=== PATIENT | female | born 1960 | race Caucasian/White ===

== ENCOUNTER 2019-07-31 09:44 | Outpatient (CLI) | payer OTHER ==
--- NOTE | 2019-07-31 12:04 | ULT ---
PELVIC ULTRSOUND: Transabdominal and endovaginal ultrasound of the pelvis is performed. INDICATION: Overactive bladder. FINDINGS: Uterus has a normal size and appearance There is a tiny hyperechoic focus in the uterine myometrium in the 3 mm range probably representing a small calcification. Endometrial stripe is normal measuring 3-4 mm. The right ovary is identified and appears unremarkable. Color Doppler and spectral analysis demonstr ates blood flow to the right ovary. The left ovary is not identified. Prevoid bladder images were obtained. Bladder shows mild distenti on with mild bladder wall thickening which is probably due to under distention. The bladder volume i s recorded at 38 cc. A postvoid bladder volume is recorded at less than 1 cc. IMPRESSION: Unremarkable pelvic ultrasound. The left ovary is not identified. POS: AH
== END 2019-07-31 09:45 | disposition home or self-care (01) ==
LOC: BICULT 09:44
PROVIDERS: ATTEND Urology
DX: N32.81 Overactive bladder (principal)
CPT/HCPCS: 76856

== ENCOUNTER 2023-11-29 12:40 | Outpatient (CLI) | payer MEDICARE ==
[2023-11-29 14:15] LABS: #Basophils 0.06 10x3/uL (0.0-0.2); %Basophils 1.1 % (0.0-1.0); %Eosinophils 3.9 % (0.0-10.0); %Lymphocytes 30.2 % (21.0-51.0); %Monocytes 9.6 % (0.0-10.0); Hematocrit 36.2 % (36.0-47.0); Hemoglobin 11.4 g/dL (12.0-16.0); Mean Corpuscular HGB CONC 31.5 g/dL (32.0-36.0); Mean Corpuscular Hemoglobin 29.3 pg (27.0-31.0); Mean Corpuscular Volume 93.1 fL (78.0-98.0); Mean Platelet Volume 8.8 fL (7.4-10.4); Platelet Count 215 10x3/uL (130-400); RBC Distribution Width 13.8 % (11.5-14.5); Red Blood Cell (RBC) Count 3.89 mill/uL (4.20-5.40)
[2023-11-29 14:30] LABS: PTT 30.4 sec (22.9-36.1); Prothrombin Time 12.7 sec (12.0-14.7)
[2023-11-29 14:38] LABS: Bilirubin Negative (Negative); Blood, Urine Negative (Negative); Clarity Clear (Clear); Glucose, Urine (Dipstick) Normal (Negative); Ketone, Urine Negative (Negative); Leukocyte Negative Leu/uL (Negative); Nitrite Negative (Negative); Protein, Urine (Dipstick) Negative (Neg-Trace); RBC/HPF 0-3 HPF (0-3); Specific Gravity, Urine 1.006 (1.002-1.036); Squamous Epithelial 0-3 HPF (0-3); Urobilinogen Normal mg/dL (Less than 2); WBC/HPF 0-3 HPF (0-3); pH, Urine 6.5 (5.0-9.0)
[2023-11-29 14:41] LABS: Bacteria/HPF 1+ HPF (None Seen)
[2023-11-29 14:53] LABS: Anion Gap 11 mmol/L (10-20); BUN (Urea Nitrogen) 17 mg/dL (9.8-20.1); Calc. Creatinine Clearance 0 mL/min (70-130); Carbon Dioxide 27 mmol/L (23-31); Chloride 104 mmol/L (98-107); Estimated GFR 67; Glucose 103 mg/dL (80-115); Potassium 4.1 mmol/L (3.5-5.1); Sodium 138 mmol/L (136-145)
== END 2023-11-29 12:41 | disposition home or self-care (01) ==
LOC: LABBT 12:40
PROVIDERS: ATTEND Urology
DX: Z01.818 Encounter for other preprocedural examination (principal); N39.46 Mixed incontinence
CPT/HCPCS: 71046; 80048; 81001; 85025; 85610; 85730; 87086; 93005; 93010

== ENCOUNTER 2023-12-07 05:44 | Day surgery (SDC) | payer MEDICARE ==
[2023-11-29 13:18] VITALS: BMI 25.7
[2023-12-07] MEDS ORDERED: Bupivacaine 0.25% HCL 30 ML VIAL ONE (07:15)
[2023-12-07] MEDS ORDERED: Midazolam HCl 2 mg/2 ml Vial ONE (07:21)
[2023-12-07] MEDS ORDERED: PROPOFOL 20 ML ONE ×4 (07:52→08:31)
[2023-12-07] MEDS ORDERED: Lidocaine 1% PF 5 ML VIAL ONE (07:52)
[2023-12-07] MEDS ORDERED: CEFAZOLIN 1 GM VIAL ONE (07:52)
[2023-12-07] MEDS ORDERED: fentaNYL PF 100 MCG/2 ML SYRINGE ONE (08:01)
== END 2023-12-07 10:25 | disposition home or self-care (01) ==
LOC: SDC 05:44
PROVIDERS: ATTEND Urology
PROC: 01HY3MZ Insertion of Neurostimulator Lead into Peripheral Nerve, Percutaneous Approach (ICD-10-PCS; principal; 2023-12-07)
DX: N32.81 Overactive bladder (principal); I10 Essential (primary) hypertension; E78.5 Hyperlipidemia, unspecified; F41.9 Anxiety disorder, unspecified; F32.A Depression, unspecified; L40.50 Arthropathic psoriasis, unspecified; Z85.828 Personal history of other malignant neoplasm of skin; Z90.49 Acquired absence of other specified parts of digestive tract; Z88.5 Allergy status to narcotic agent; Z88.2 Allergy status to sulfonamides; Z91.013 Allergy to seafood; Z88.8 Allergy status to other drugs, medicaments and biological substances; Z98.890 Other specified postprocedural states
CPT/HCPCS: 64561; C1897; J0665; J0690; J2250; J2704

== ENCOUNTER 2024-01-17 12:40 | Outpatient (CLI) | payer MEDICARE ==
[2024-01-17 13:51] LABS: #Basophils 0.05 10x3/uL (0.0-0.2); %Eosinophils 4.4 % (0.0-10.0); %Lymphocytes 28.9 % (21.0-51.0); %Monocytes 7.3 % (0.0-10.0); %Neutrophils 58.2 % (42.0-75.0); Hematocrit 37.4 % (36.0-47.0); Hemoglobin 11.7 g/dL (12.0-16.0); Mean Corpuscular HGB CONC 31.3 g/dL (32.0-36.0); Mean Corpuscular Hemoglobin 28.7 pg (27.0-31.0); Mean Corpuscular Volume 91.7 fL (78.0-98.0); Mean Platelet Volume 8.6 fL (7.4-10.4); Platelet Count 228 10x3/uL (130-400); RBC Distribution Width 13.2 % (11.5-14.5); Red Blood Cell (RBC) Count 4.08 mill/uL (4.20-5.40)
[2024-01-17 14:04] LABS: Bilirubin Negative (Negative); Blood, Urine Trace (Negative); Clarity Turbid (Clear); Glucose, Urine (Dipstick) Normal (Negative); Ketone, Urine Negative (Negative); Leukocyte 500 Leu/uL (Negative); Nitrite Negative (Negative); Protein, Urine (Dipstick) 20 mg/dL (Neg-Trace); RBC/HPF 21-50 HPF (0-3); Specific Gravity, Urine 1.006 (1.002-1.036); Squamous Epithelial 0-3 HPF (0-3); Urobilinogen Normal mg/dL (Less than 2); WBC/HPF Greater than 50 HPF (0-3); pH, Urine 6.5 (5.0-9.0)
[2024-01-17 14:05] LABS: Bacteria/HPF 1+ HPF (None Seen)
[2024-01-17 14:06] LABS: Prothrombin Time 12.8 sec (12.0-14.7)
[2024-01-17 14:08] LABS: Anion Gap 13 mmol/L (10-20); BUN (Urea Nitrogen) 13 mg/dL (9.8-20.1); Calc. Creatinine Clearance 0 mL/min (70-130); Calcium 9.3 mg/dL (7.8-10.44); Carbon Dioxide 27 mmol/L (23-31); Chloride 105 mmol/L (98-107); Estimated GFR 81; Glucose 94 mg/dL (80-115); Sodium 141 mmol/L (136-145)
== END 2024-01-17 12:41 | disposition home or self-care (01) ==
LOC: LABBT 12:40
PROVIDERS: ATTEND Urology
DX: Z01.818 Encounter for other preprocedural examination (principal); N39.46 Mixed incontinence; K59.09 Other constipation; N39.0 Urinary tract infection, site not specified; N32.81 Overactive bladder
CPT/HCPCS: 80048; 81001; 85025; 85610; 85730; 87077; 87086; 93005; 93010

== ENCOUNTER 2024-01-25 06:02 | Day surgery (SDC) | payer MEDICARE ==
[2024-01-17 13:06] VITALS: BMI 26.5
[2024-01-25] MEDS ORDERED: Gentamicin 80 MG/2 ML VIAL ONE (07:08)
[2024-01-25] MEDS ORDERED: Bupivacaine 0.25% HCL 30 ML VIAL ONE (07:08)
[2024-01-25] MEDS ORDERED: Lidocaine 4% Topical Sol 50 ML BOT ONE (07:18)
[2024-01-25] MEDS ORDERED: PROPOFOL 20 ML ONE (07:21)
[2024-01-25] MEDS ORDERED: Scopolamine 1 mg/72 hour Patch ONE (07:27)
[2024-01-25] MEDS ORDERED: CEFAZOLIN 2 GM VIAL ONE (07:34)
[2024-01-25] MEDS ORDERED: fentaNYL 50 mcg/mL 1 mL Vial ONE ×2 (07:48→08:53)
[2024-01-25] MEDS ORDERED: Ondansetron PF 4 MG/2 ML Vial ONE ×2 (08:16→09:56)
[2024-01-25] MEDS ORDERED: Dexamethasone 4 mg/ml Vial ONE (08:16)
[2024-01-25] MEDS ORDERED: ePHEDrine Sulfate 50 MG/10 ML VIAL ONE (08:17)
[2024-01-25] MEDS ORDERED: PHENYLEPHRINE-NS 100 MCG/ML 10 ML SYRINGE ONE (08:29)
[2024-01-25] MEDS ORDERED: SUCCINYLCHOLINE/SOD CL,ISO/PF 200 MG/10 ML SYRINGE FS ONE (08:29)
[2024-01-25] MEDS ORDERED: Lidocaine 2% PF 5 ML VIAL ONE (08:29)
[2024-01-25] MEDS ORDERED: Promethazine HCl 25 MG/ML VIAL ONE (11:28)
== END 2024-01-25 12:20 | disposition home or self-care (01) ==
LOC: SDC 06:02
PROVIDERS: ATTEND Urology
PROC: 0JH73BZ Insertion of Single Array Stimulator Generator into Back Subcutaneous Tissue and Fascia, Percutaneous Approach (ICD-10-PCS; principal; 2024-01-25)
PROC: 01HY3MZ Insertion of Neurostimulator Lead into Peripheral Nerve, Percutaneous Approach (ICD-10-PCS; 2024-01-25)
DX: N32.81 Overactive bladder (principal); I10 Essential (primary) hypertension; E78.5 Hyperlipidemia, unspecified; L40.50 Arthropathic psoriasis, unspecified; F32.A Depression, unspecified; F32.9 Major depressive disorder, single episode, unspecified; J45.909 Unspecified asthma, uncomplicated; Z90.49 Acquired absence of other specified parts of digestive tract; Z88.2 Allergy status to sulfonamides; Z88.5 Allergy status to narcotic agent; Z88.8 Allergy status to other drugs, medicaments and biological substances; Z91.013 Allergy to seafood
CPT/HCPCS: 64561; 64590; 72220; C1713; C1767; C1787; C1897; J0665; J1100; J1580; J2405; J2550; J2704; J3010